=== PATIENT | female | born 1980 | race Caucasian/White ===

== ENCOUNTER 2018-02-06 11:36 | Emergency (ER) | payer OTHER ==
[~2018-02-06] VITALS: Ht 172.7 cm; Wt 77.1 kg
[2018-02-06] MEDS ORDERED: IBUPROFEN 600600 M1 PO (11:46)
[2018-02-06] MEDS ORDERED: CEFDINIR300 MG PO (11:56)
[2018-02-06] MEDS ORDERED: ACETAMINOPHEN-1 EAC1 PO (11:56)
[2018-02-06] MEDS ORDERED: CIPROFLOXIN HC2.5 M1 OTIC (11:56)
[2018-02-06 12:06] VITALS: BP 118/72
== END 2018-02-06 12:12 | disposition home or self-care (01) ==
LOC: M.ERS 11:36
DX: H66.91 Otitis media, unspecified, right ear (principal); M19.90 Unspecified osteoarthritis, unspecified site; M54.30 Sciatica, unspecified side; F31.9 Bipolar disorder, unspecified; F41.9 Anxiety disorder, unspecified; Z88.6 Allergy status to analgesic agent; Z88.0 Allergy status to penicillin

== ENCOUNTER 2018-08-12 10:57 | Emergency (ER) | payer OTHER, MEDICAID ==
[~2018-08-12] VITALS: Ht 165.1 cm; Wt 77.1 kg
[~2018-08-12 10:57] MED LIST: ACETAMINOPHEN-1 EAC1 PO; CEFDINIR300 MG PO; CIPROFLOXIN HC2.5 M1 OTIC; IBUPROFEN 600600 M1 PO
[2018-08-12 11:05] VITALS: BP 114/51
[2018-08-12] MEDS ORDERED: PRENATAL PO (11:13)
== END 2018-08-12 11:19 | disposition home or self-care (01) ==
LOC: M.ERS 10:57
DX: O26.893 Other specified pregnancy related conditions, third trimester (principal); R51 Headache; R10.9 Unspecified abdominal pain; O21.8 Other vomiting complicating pregnancy; O99.343 Other mental disorders complicating pregnancy, third trimester; M19.90 Unspecified osteoarthritis, unspecified site; Z3A.28 28 weeks gestation of pregnancy; Z88.0 Allergy status to penicillin; Z88.6 Allergy status to analgesic agent; Z91.040 Latex allergy status

== ENCOUNTER 2019-02-13 20:38 | Emergency (ER) | payer OTHER, MEDICAID ==
[~2019-02-13] VITALS: Ht 172.7 cm; Wt 77.6 kg
[~2019-02-13 20:38] MED LIST changes: +PRENATAL PO
[2019-02-13] MEDS ORDERED: NEURONTIN 300300 M1 PO (20:49)
[2019-02-13] MEDS ORDERED: BUSPIRONE HCL10 MG PO (20:50)
[2019-02-13] MEDS ORDERED: IBU800 MG PO (20:52)
[2019-02-13] MEDS ORDERED: ALIVE WOMEN'S1 EAC1 PO (20:52)
[2019-02-13] MEDS ORDERED: PROAIR HFA8.5 GM INH (21:39)
[2019-02-13] MEDS ORDERED: ALBUTEROL2.5 MG/31 INH (21:39)
[2019-02-13] MEDS ORDERED: BUTALB-APAP-CA1 EACH PO (21:47)
[2019-02-13] MEDS ORDERED: PREDNISONE50 MG PO (21:48)
[2019-02-13 22:02] LABS: INFLUENZA A ANTIGEN None Detected (None Detect); INFLUENZA B ANTIGEN None Detected (None Detect)
[2019-02-13 22:38] VITALS: BP 150/68
== END 2019-02-13 22:41 | disposition home or self-care (01) ==
LOC: M.ERS 20:38
PROVIDERS: Emergency Medicine
DX: J45.901 Unspecified asthma with (acute) exacerbation (principal); R51 Headache; F31.9 Bipolar disorder, unspecified; F41.9 Anxiety disorder, unspecified; M19.90 Unspecified osteoarthritis, unspecified site; F17.210 Nicotine dependence, cigarettes, uncomplicated; Z88.6 Allergy status to analgesic agent; Z88.0 Allergy status to penicillin; Z91.040 Latex allergy status

== ENCOUNTER 2020-01-16 14:55 | Inpatient (IN) | payer OTHER, MEDICAID ==
[~2020-01-16] VITALS: Ht 172.7 cm; Wt 83.9 kg
[~2020-01-16 14:55] MED LIST changes: +ALBUTEROL2.5 MG/31 INH; +ALIVE WOMEN'S1 EAC1 PO; +BUSPIRONE HCL10 MG PO; +BUTALB-APAP-CA1 EACH PO; +IBU800 MG PO; +NEURONTIN 300300 M1 PO; +PREDNISONE50 MG PO; +PROAIR HFA8.5 GM INH
[2020-01-16 15:03] VITALS: BP 102/52
[2020-01-16] MEDS ORDERED: ZANAFLEX2 M1 PO (15:07)
[2020-01-16 15:54] LABS: ABSOLUTE MONOCYTES 1.1 thou/uL (0.0-1.2); ABSOLUTE NEUTROPHILS 12.2 thou/uL (1.6-8.1); BASOPHILS 0.2 %; EOSINOPHILS 0.3 %; HEMATOCRIT 38.2 % (37.0-47.0); HEMOGLOBIN 13.3 gm/dL (12.0-15.0); LYMPHOCYTES 6.8 %; MCH 31.2 pg (26.0-34.0); MCHC 34.7 g/dL (28.0-37.0); MONOCYTES 7.8 %; MPV 9.4 fl. (7.2-11.1); NUCLEATED RBCS 0 /100WBC; PLATELET COUNT* 167 thou/uL (150-400); POLYS 84.9 %; RBC 4.25 mil/uL (4.20-5.00); RDW-CV 13.1 % (10.5-14.5); WBC 14.3 thou/uL (4.0-11.0)
[2020-01-16 16:03] LABS: APTT 33.1 Seconds (25.0-31.3); CALCIUM 8.4 mg/dL (8.5-10.1); INR 1.1; POTASSIUM 3.6 mmol/L (3.5-5.1); PROTIME 10.9 Seconds (9.20-11.50)
[2020-01-16 16:07] LABS: ALBUMIN 3.5 g/dL (3.4-5.0); TOTAL BILIRUBIN 0.8 mg/dL (<0.1-1.0); TOTAL PROTEIN 7.2 g/dL (6.4-8.2)
[2020-01-16 17:55] VITALS: BP 111/55
[2020-01-16 18:00] VITALS: BP 110/64
[2020-01-16 23:55] VITALS: BP 123/61
[2020-01-17 04:17] LABS: ABSOLUTE BASOPHILS 0.1 thou/uL (0.0-0.2); ABSOLUTE EOSINOPHILS 0.2 thou/uL (0.0-0.7); ABSOLUTE LYMPHOCYTES 1.5 thou/uL (0.8-5.3); ABSOLUTE MONOCYTES 1.5 thou/uL (0.0-1.2); ABSOLUTE NEUTROPHILS 10.9 thou/uL (1.6-8.1); BASOPHILS 0.7 %; EOSINOPHILS 1.4 %; HEMATOCRIT 33.5 % (37.0-47.0); HEMOGLOBIN 11.6 gm/dL (12.0-15.0); LYMPHOCYTES 10.7 %; MCH 31.2 pg (26.0-34.0); MCHC 34.5 g/dL (28.0-37.0); MCV 90.4 fL (80.0-100.0); MONOCYTES 10.6 %; NUCLEATED RBCS 0 /100WBC; PLATELET COUNT* 159 thou/uL (150-400); POLYS 76.6 %; RBC 3.71 mil/uL (4.20-5.00); WBC 14.2 thou/uL (4.0-11.0)
[2020-01-17 04:28] LABS: CALCIUM 7.3 mg/dL (8.5-10.1); CREATININE 0.8 mg/dL (0.6-1.3); POTASSIUM 3.3 mmol/L (3.5-5.1)
[2020-01-17 07:50] VITALS: BP 100/53
[2020-01-17 16:00] VITALS: BP 113/39
[2020-01-17 20:00] VITALS: BP 111/61
[2020-01-18 07:13] LABS: HEPATITIS B SURFACE AG Negative (Negative)
--- NOTE | 2020-01-18 07:35 | CON ---
[address] [address] CONSULTATION Name: ASHLEY PEREZ Room: [address] IN [facility]#: [id number] Admission: 01/16/20 Attend Phys: Danielito Mena MD Discharge: Date of : 80 Report #: [id number] THIS REPORT FOR: //name// cc: VICTORINO Hunter family physician/PCP VICTORINO Hunter family physician/PCP ~ THIS REPORT FOR: //name// CC: Danielito GLEASON physician/PCP DATE OF SERVICE: 01/17/2020 INFECTIOUS DISEASE CONSULTATION ATTENDING PHYSICIAN: Danielito Mena MD REASON FOR EVALUATION: Left buttock skin and soft tissue infection with cellulitis. HISTORY OF PRESENT ILLNESS: Chart reviewed, patient examined. This is a 39-year-old woman with history of asthma, who noted onset of what she describes as pimple over the left aspect of her buttocks. This progressed over 48 to 72 hours. She became quite painful. The degree of redness extended several centimeters. She did have fever recorded as high as 101 with complaints of joint pains and some dizziness and weakness. Due to concern about aggressive infection, she was admitted. Initial white count was 14.3. Lactic acid of 0.8. She has been evaluated by Surgery. Denies any significant pulmonary or gastrointestinal-related complaints. ALLERGIES: LISTED TO PENICILLINS, ASPIRIN, LATEX. CURRENT MEDICATIONS: Include levofloxacin, pantoprazole, vancomycin, gabapentin, enoxaparin, nicotine, hydrocodone as needed, p.r.n. antiemetics. PAST MEDICAL HISTORY: History of asthma, arthritis, anxiety and bipolar disease. SOCIAL HISTORY: Smokes cigarettes on a daily basis. Uses marijuana. Occasional ethanol. FAMILY HISTORY: Noncontributory. REVIEW OF SYSTEMS: As above, otherwise unremarkable. PHYSICAL EXAMINATION: GENERAL: She is alert, cooperative, appropriate, [place] [address] CONSULTATION Name: ASHLEY PEREZ Room: [address]#: [id number] Admission: 01/16/20 Attend Phys: Danielito Mena MD Discharge: Date of : 80 Report #: [id number] well nourished. VITAL SIGNS: Temperature max 100.4, more recently 99.2, pulse 91, respirations 18 and blood pressure 100/53. SKIN: Warm, dry, no rashes. HEENT: Otherwise unremarkable. Normocephalic. Extraocular muscles intact. NECK: Supple. LUNGS: Clear to auscultation, somewhat diminished. HEART: Regular. Borderline tachycardic. I do not appreciate murmur. ABDOMEN: Soft, nontender, nondistended. BREASTS: Left buttock has several centimeters of induration, is quite tender. There is a small area that appears to be the site of the initial lesion, it is a bit of an eschar. I do not appreciate any fluctuance. RECTAL: Deferred. LABORATORY DATA: CBC: White count of 14.3, H and H 13.3 and 38.2, platelets of 167, No neutrophilia. PT of 10.9, INR of 1.1. Electrolytes: Sodium 134, potassium 3.6, chloride 99, bicarbonate is 24, anion gap of 11, BUN and creatinine of 8 and 1.0. AST borderline elevated at 45, ALT of 78. Albumin of 3.5. Lactic acid 0.8. ASSESSMENT AND PLAN: Inflammatory eruption in the left buttock, likely infectious etiology. Agree with empiric antimicrobial therapy to cover Staph and strep. We will haile culture as allowed. Utilize some warm moist heat. We will go ahead and check acute hepatitis profile and see how she does clinically in the next 24-48 hours. <ELECTRONICALLY SIGNED> By: Mohsen Goddard MD 01/18/20 0735 1031 [id number] Goddard MD /nt
[2020-01-18 07:40] LABS: HEMATOCRIT 31.2 % (37.0-47.0); HEMOGLOBIN 10.8 gm/dL (12.0-15.0); MCH 31.5 pg (26.0-34.0); MCHC 34.5 g/dL (28.0-37.0); MCV 91.3 fL (80.0-100.0); MPV 9.3 fl. (7.2-11.1); RBC 3.42 mil/uL (4.20-5.00); RDW-CV 13.3 % (10.5-14.5); WBC 10.7 thou/uL (4.0-11.0)
[2020-01-18 07:45] VITALS: BP 114/47
[2020-01-18 07:47] LABS: CALCIUM 8.1 mg/dL (8.5-10.1); CREATININE 0.8 mg/dL (0.6-1.3); POTASSIUM 4.1 mmol/L (3.5-5.1)
[2020-01-18 09:00] VITALS: BP 111/51
[2020-01-18 15:45] VITALS: BP 108/63
[2020-01-19 07:25] VITALS: BP 101/56
[2020-01-19 14:31] LABS: HEMATOCRIT 35.3 % (37.0-47.0); HEMOGLOBIN 12.1 gm/dL (12.0-15.0); MCH 31.3 pg (26.0-34.0); MCHC 34.2 g/dL (28.0-37.0); MCV 91.5 fL (80.0-100.0); MPV 9.2 fl. (7.2-11.1); RBC 3.85 mil/uL (4.20-5.00); RDW-CV 13.2 % (10.5-14.5); WBC 7.2 thou/uL (4.0-11.0)
[2020-01-19 14:45] LABS: CALCIUM 8.6 mg/dL (8.5-10.1); CREATININE 0.8 mg/dL (0.6-1.3); POTASSIUM 4.2 mmol/L (3.5-5.1)
[2020-01-19 16:00] VITALS: BP 138/54
[2020-01-19 20:00] VITALS: BP 109/57
[2020-01-20 09:00] VITALS: BP 123/63
[2020-01-20 16:28] VITALS: BP 108/63
[2020-01-20 20:26] VITALS: BP 122/76
[2020-01-21 07:22] VITALS: BP 126/68
[2020-01-21 13:36] VITALS: BP 126/68
[2020-01-21] MEDS ORDERED: MINOCYCLINE HC100 M2 PO (15:15)
[2020-01-21 15:35] VITALS: BP 126/68
[2020-01-21 15:38] VITALS: BP 126/68
[2020-01-21 15:43] VITALS: BP 126/68
[2020-01-21] MEDS ORDERED: VICODIN HP 10-1 EAC1 PO (15:48)
[2020-01-21 18:26] VITALS: BP 126/68
== END 2020-01-21 18:20 | disposition home or self-care (01) | DRG 872 ==
LOC: M.ERS 14:55 → M.3W 16:16 → M.TBA-ER 16:16 → M.3W 17:54
PROVIDERS: Family Medicine; Specialist; Surgery; ADMIT Internal Medicine
PROC: 0Y910ZZ Drainage of Left Buttock, Open Approach (ICD-10-PCS; principal; 2020-01-17)
DX: A41.9 Sepsis, unspecified organism (principal); L02.31 Cutaneous abscess of buttock; L03.317 Cellulitis of buttock; F31.9 Bipolar disorder, unspecified; F41.9 Anxiety disorder, unspecified; M19.90 Unspecified osteoarthritis, unspecified site; J45.909 Unspecified asthma, uncomplicated; F17.210 Nicotine dependence, cigarettes, uncomplicated; F12.90 Cannabis use, unspecified, uncomplicated; Z88.0 Allergy status to penicillin; Z88.6 Allergy status to analgesic agent; Z91.040 Latex allergy status; Z79.899 Other long term (current) drug therapy

== ENCOUNTER 2020-05-05 18:51 | Emergency (ER) | payer OTHER, MEDICAID ==
[~2020-05-05] VITALS: Ht 172.7 cm; Wt 79.4 kg
[~2020-05-05 18:51] MED LIST changes: +MINOCYCLINE HC100 M2 PO; +VICODIN HP 10-1 EAC1 PO; +ZANAFLEX2 M1 PO
[2020-05-05] MEDS ORDERED: FLEXERIL PO (19:10)
[2020-05-05] MEDS ORDERED: [UNRECOGNIZED DRUG - OTHER] (19:10)
[2020-05-05] MEDS ORDERED: ACETAMINOPHEN-1 EAC2 PO (20:18)
[2020-05-05] MEDS ORDERED: MEDROLDOSEPACK PO (20:18)
[2020-05-05 21:06] VITALS: BP 144/78
== END 2020-05-05 21:06 | disposition home or self-care (01) ==
LOC: M.ERS 18:51
DX: S33.5XXA Sprain of ligaments of lumbar spine, initial encounter (principal); J45.909 Unspecified asthma, uncomplicated; M19.90 Unspecified osteoarthritis, unspecified site; F31.9 Bipolar disorder, unspecified; F41.9 Anxiety disorder, unspecified; F17.210 Nicotine dependence, cigarettes, uncomplicated; Z91.040 Latex allergy status; Z88.0 Allergy status to penicillin; Z88.6 Allergy status to analgesic agent; W18.49XA Other slipping, tripping and stumbling without falling, initial encounter; Y93.89 Activity, other specified; Y92.89 Other specified places as the place of occurrence of the external cause; Y99.8 Other external cause status

== ENCOUNTER 2020-05-30 20:16 | Emergency (ER) | payer OTHER, MEDICAID ==
[~2020-05-30] VITALS: Ht 172.7 cm; Wt 78.0 kg
[~2020-05-30 20:16] MED LIST changes: +ACETAMINOPHEN-1 EAC2 PO; +FLEXERIL PO; +MEDROLDOSEPACK PO; +[UNRECOGNIZED DRUG - OTHER]
[2020-05-30] MEDS ORDERED: MOBIC7.5 MG PO ×2 (22:09→22:10)
[2020-05-30] MEDS ORDERED: NORCO 5-325 TA1 EAC2 PO (22:09)
[2020-05-30 22:18] VITALS: BP 132/74
--- NOTE | 2020-05-31 10:42 | EKG ---
[place] [address] ELECTROCARDIOGRAM REPORT Name: ASHLEY PEREZ Room: [facility]#: [id number] Admission: 05/30/20 Attend Phys: Discharge: 05/30/20 Date of : 80 Date of Service: 05/30/202045 Report #: [id number] THIS REPORT FOR: //name// [facility] ED Test Date: 2020-05-30 Test Time: 20:46:21 Pat Name: ASHLEY PEREZ Department: Room: Gender: F Swimmer: BIN : 1980 Requested By: Barbara Ponce Order Number: [id number] MD: Mika Knight Measurements Intervals [place] Rate: 75 P: 51 OR: 151 QRS: 65 QRSD: 79 T: 39 QT: 372 QTc: 416 Interpretive Statements Sinus rhythm No previous ECG available for comparison Electronically Signed On 05-31-2020 10:42:34 CDT by Mika Knight [email or web address] <ELECTRONICALLY SIGNED> By: Mika Knight MD, [facility] 05/31/20 1042 45 45 Mika Knight MD, FACC /EPI
== END 2020-05-30 22:18 | disposition home or self-care (01) ==
LOC: M.ERS 20:16
DX: R07.81 Pleurodynia (principal); J45.909 Unspecified asthma, uncomplicated; M19.90 Unspecified osteoarthritis, unspecified site; F17.210 Nicotine dependence, cigarettes, uncomplicated; Z88.0 Allergy status to penicillin; Z91.040 Latex allergy status; Z88.6 Allergy status to analgesic agent